=== PATIENT | female | born 1965 | race Caucasian/White ===

== ENCOUNTER 2018-10-21 06:38 | Day surgery (SDC) | payer BC, MEDICARE, SELFPAY ==
[2018-09-08 10:25] VITALS: BMI 27.4
--- NOTE | 2018-10-21 | PATH_ITS ---
[facility] Accession Number: [id number] . 01 Material submitted: . ENDOMETRIAL CURETTINGS . 02 Diagnosis: Endometrial Curettings: Very scant endometrial tissue present. Please see comment. MRV/10/22/2018 . 02 Comment: The specimen consists predominantly of blood with very scant strips of endometrial glandular epithelium and scant fragments of endometrial tissue. Due to the scant nature of this biopsy, it may not be entirely correspondence representative of this patient's endometrium. Additional sampling could be considered, if clinically appropriate. There is no evidence of cytologic atypia, glandular hyperplasia or malgnancy in these small tissue fragments. . 02 Electronically signed: . Krystyna Ayala MD, Pathologist NPI- [id number] . 01 Gross description: . Received one formalin-filled container labeled with the patient's name and labeled endometrial curettings. The specimen consists of a less than 0.25 cc aggregate of tissue, mucoid material and blood, which is wrapped and entirely submitted in one cassette. [place] [id number] /[facility] . 02 Pathologist provided ICD-10: N85.00 . 02 CPT . 275516 Performed at: 01 [facility] [address], [place], [place] [id number] MD Chris Neri MD Phone: [phone] Performed at: [address] [facility] [address] [place], [place] [id number] MD Snehal Tian MD Phone: [phone]
[2018-10-21 06:58] VITALS: BP 156/90; PULSE 65; RESP 16; TEMP 36.8; O2SAT 96; BMI 27.8
[2018-10-21] MEDS: LACTATED RINGERS 1,000 ML 100 ML IV (07:08)
[2018-10-21 07:12] VITALS: BMI 27.8
[2018-10-21] MEDS: SCOPOLAMINE 1 PATCH TOP (07:29)
--- NOTE | 2018-10-21 07:31 | PM.HP.1 ---
History of Present Illness Date Patient Seen: 10/21/18 Time Patient Seen: 07:31 Chief complaint: [id number] D&C HYSTEROSCOPY Narrative: Patient is a 53-year-old 3 para 2 with postmenopausal bleeding who presents for D&C hysteroscopy Patient History Medical History Fibromyalgia (Chronic ~1999) Headache (Chronic ~1987) Hypothyroidism (Chronic ~2009) Psoriasis (Chronic ~1999) TMJ (temporomandibular joint disorder) (Chronic ~1987) Tinnitus (Chronic ~1987) Chicken pox (Resolved) Measles (Resolved) Mumps (Resolved) Surgical History Anesthesia (Resolved) History of cholecystectomy (Resolved ~1985) History of mandibular surgery (Resolved ~1998) History of surgery (Resolved) History of tonsillectomy (Resolved ~1966) Family History Father No problems noted. Mother Hyperlipidemia Brother Hyperlipidemia Hypertension Grandfather Diabetes mellitus Stroke Grandmother Heart disease Grandfather No problems noted. Grandmother No problems noted. Social History household members: spouse Smoking Status: Never smoker Family & Social History Family History Father No problems noted. Mother Hyperlipidemia Brother Hyperlipidemia Hypertension Grandfather Diabetes mellitus Stroke Grandmother Heart disease Grandfather No problems noted. Grandmother No problems noted. Social History: household members spouse Tobacco & Substance use: Smoking Status Never smoker Meds Home Medications Medication Instructions Recorded Confirmed Type levothyroxine 100 mcg tablet 100 mcg PO DAILY 06/09/18 10/21/18 History liothyronine 5 mcg tablet 5 mcg PO .COMPLEX tab 06/09/18 10/21/18 History orphenadrine citrate ER 100 mg 100 mg PO BID 06/09/18 10/21/18 History tablet,extended release trazodone 50 mg tablet 50 mg PO BEDTIME tab 06/09/18 10/21/18 History Allergies Allergy/AdvReac Type Severity Reaction Status Date / Time No Known Drug Allergies Allergy Verified 10/21/18 06:55 Exam Vital Signs (past 8 hours): - 10/21/18 06:58 Temperature 98.2 F Pulse Rate 65 Respiratory Rate 16 Blood Pressure 156/90 H Pulse Oximetry 96 Oxygen Delivery Method Room Air Narrative Exam Narrative: HEENT: No thyromegaly, no anterior cervical or supraclavicular lymphadenopathy. Lungs:Clear to auscultation bilaterally, no wheezes. Cardiovascular: Regular rate and rhythm, no murmurs, rubs, or gallops the. Abdomen: No scars. No hepatosplenomegaly. No masses palpable. External genitalia: Normal Vagina: Normal Cervix: Parous Bimanual exam: 6 Week size uterus. Mobile. Rectal: No masses. Assessment & Plan (1) Postmenopausal postcoital bleeding: Current visit: Yes Status: Acute Assessment & Plan narrative: Assessment: A 53-year-old 3 para 2 with postmenopausal bleeding Plan: D&C hysteroscopy The risks, benefits, and alternatives were explained to the patient. The risks including bleeding, infection or uterine perforation. She understands these risks and agrees to proceed. A full PAR-Q was held and consent form was signed.
[2018-10-21] MEDS: APREPITANT 40 MG CAPSULE PO (07:32)
--- NOTE | 2018-10-21 07:41 | PM.PREOP ---
Pre-operative Note Interval Note History & Physical reviewed/Exam performed by Physician: Yes Changes to H&P: No
[2018-10-21 08:18] VITALS: BP 168/89; PULSE 80; RESP 20; TEMP 36.2; O2SAT 99
[2018-10-21 08:23] VITALS: BP 158/88; PULSE 72; RESP 12; O2SAT 99
--- NOTE | 2018-10-21 08:24 | P.OP_ITS ---
Operative Date/Time/Diagnoses Date of procedure: 10/21/18 Time of procedure: 08:17 Pre-op diagnosis: Postmenopausal bleeding Post-op diagnosis: same Procedure: Procedures Operation Date: 10/21/18 07:45 Actual Procedures Side Surgeon p Hysteroscopy D&C Dotty Lema MD Indications: Postmenopausal bleeding Surgeon: Dotty Lema Anesthesia Type: General (LMA) Operative Notes Findings: A 6 week size uterus Both fallopian tube ostia observed No polyps or fibroids Closure Type: not applicable Specimen(s): endometrial curettings Estimated blood loss (mL): 5 Blood products transfused: none Procedure in detail: After informed consent was obtained, the patient was taken to the operating room where she was placed in the dorsal supine position. After adequate LMA general anesthesia was achieved, she was placed in the dorsal lithotomy position, and prepped and draped in the usual sterile fashion. A bivalve speculum was placed into the vagina and the anterior lip of the cervix grasped with a single-tooth tenaculum. Cervical os was sequentially dilated to the # 8 Hegar dilator. The hysteroscope passed easily into the endometrial cavity. Initial inspection with the hysteroscope revealed both fallopian tube ostia. There were no polyps or fibroids. The hysteroscope was removed. Sharp curettage was performed yielding a small amount of endometrial curettings. The instruments were removed from the uterus. The single-tooth tenaculum was rem nick from the anterior lip of the cervix. The bivalve speculum was removed from the vagina. Complications: none Post-operative Condition: stable Disposition: PACU Plan for aftercare: Home after recovery
[2018-10-21 08:28] VITALS: BP 139/88; PULSE 72; RESP 14; O2SAT 99
[2018-10-21 08:33] VITALS: BP 141/82; PULSE 59; RESP 11; TEMP 36.1; O2SAT 100
[2018-10-21 08:41] VITALS: BP 162/88; PULSE 58; RESP 15; TEMP 36.3; O2SAT 100
== END 2018-10-21 08:56 | disposition home or self-care (01) ==
PROVIDERS: PCP Family Medicine; Visit Provider Obstetrics & Gynecology
PROC: 0UDB8ZZ Extraction of Endometrium, Via Natural or Artificial Opening Endoscopic (ICD-10-PCS; CPT 58558; principal; 2018-10-21 07:45)
DX: N85.00 Endometrial hyperplasia, unspecified (principal); M79.7 Fibromyalgia; E03.9 Hypothyroidism, unspecified
CPT/HCPCS: 58558; J1100; J2405; J2704; J3010; J8501

== ENCOUNTER → 2019-01-31 18:41 | Outpatient (CLI) | payer BC, MEDICARE, SELFPAY ==
--- NOTE | 2019-01-31 | DI.MRI.S_ITS ---
PROCEDURE: MR SHOULDER LT WO CON INDICATIONS: IMPINGEMENT SYNDROME OF LEFT SHOULDER TECHNIQUE: Noncontrast oblique coronal T2 fast spin echo with fat saturation, oblique sagittal T1 spin echo and T2 fast spin echo with fat saturation, axial T1 spin echo and T2 fast spin echo with fat saturation through the shoulder. COMPARISON: [facility], CR, XR SHOULDER 2+ VIEWS LEFT, 01/07/2019, 13:10. FINDINGS: Image quality: Excellent. Rotator cuff: There is full-thickness tear of the supraspinatus tendon. No tendon retraction. The infraspinatus and subscapularis tendons appear intact throughout. Sagittal images demonstrate no rotator cuff muscle atrophy. Bones and bursae: No bone marrow contusions or fractures. Mild to moderate acromioclavicular and glenohumeral joint degeneration. The acromion demonstrates conventional anatomy, without an os acromiale. No pathologic subacromial-subdeltoid or subcoracoid bursal fluid is present. Capsule and soft tissues: There is degenerative fraying of the superior and inferior labrum In the absence of intra-articular contrast, the labrum and glenohumeral ligaments appear intact. The long head of the biceps tendon demonstrates normal location and morphology. The rotator interval appears normal, without fibrosis. The coracohumeral ligament is normal in thickness. IMPRESSION: 1. Full-thickness tear of the supraspinatus tendon. No tendon retraction or supraspinatus muscle atrophy. 2. [id number] acromioclavicular and glenohumeral joint degeneration. 3. Degenerative fraying of the superior and inferior glenoid labrum. Dictated by: Martir Griffiths M.D. on 02/01/2019 at 10:55 Approved by: Martir Griffiths M.D. on 02/01/2019 at 17:59
== END ==
PROVIDERS: Visit Provider Orthopaedic Surgery
DX: M75.42 Impingement syndrome of left shoulder (principal); M75.122 Complete rotator cuff tear or rupture of left shoulder, not specified as traumatic; M19.012 Primary osteoarthritis, left shoulder
CPT/HCPCS: 73221

== ENCOUNTER → 2020-11-02 14:02 | Outpatient (CLI) | payer OTHER, MEDICARE, SELFPAY ==
--- NOTE | 2020-11-02 14:11 | DI.RAD.S_ITS ---
PROCEDURE: XR CERVICAL SPINE 4V OR 5V INDICATIONS: neck pain TECHNIQUE: 6 views of the cervical spine were acquired. COMPARISON: None. FINDINGS: Bones: No fractures or dislocations to the T1 level. No suspicious bony lesions. There is normal range of motion between flexion and extension, with preserved normal bony alignment. Degenerative changes are mild. No intervertebral disc space narrowing. No instability with flexion or extension. Soft tissues: Prevertebral soft tissues are normal in thickness. IMPRESSION: 1. No acute abnormality. 2. Mild degenerative changes. 3. No significant disc disease. Dictated by: Edvin Kay M.D. on 11/02/2020 at 14:57 Approved by: Edvin Kay M.D. on 11/02/2020 at 14:59
== END ==
PROVIDERS: Referring Provider Nurse Practitioner; Visit Provider Nurse Practitioner
DX: M54.2 Cervicalgia (principal); M47.812 Spondylosis without myelopathy or radiculopathy, cervical region
CPT/HCPCS: 72050

== ENCOUNTER → 2023-08-24 13:24 | Outpatient (CLI) | payer OTHER, MEDICARE, SELFPAY ==
--- NOTE | 2023-08-24 13:28 | DI.RAD.S_ITS ---
PROCEDURE: XR CERVICAL SPINE 4V OR 5V INDICATIONS: NECK PAIN TECHNIQUE: 5 views of the cervical spine acquired. COMPARISON: [facility], CR, XR CERVICAL SPINE 4V OR 5V, 11/02/2020, 14:14. FINDINGS: Bones: No fractures or dislocations to the T1 level. Trace anterolisthesis of C4 on C5. Mild degenerative disc disease throughout the cervical spine. Bilateral facet arthropathy, most pronounced at C3-C4, C4-C5, C5-C6 and C6-C7 on the left. Oblique images demonstrate moderate foraminal stenosis at C6-C7 on the left, and mild foraminal stenosis at C4-C5 on the left and C6-C7 on the right. Note is made of bilateral TMJ prostheses. Soft tissues: No prevertebral soft tissue swelling. IMPRESSION: 1. Mild degenerative disc disease and severe facet arthropathy in cervical spine. 2. Moderate foraminal stenosis at C5-C6 on the left, and mild foraminal stenoses at multiple other levels. 3. Bilateral TMJ arthroplasties and joint prosthesies. Dictated by: Martir Griffiths M.D. on 08/24/2023 at 14:24 Approved by: Martir Griffiths M.D. on 08/24/2023 at 14:29
== END ==
PROVIDERS: PCP Physician Assistant; Referring Provider Physical Medicine & Rehabilitation; Visit Provider Physical Medicine & Rehabilitation
DX: M47.22 Other spondylosis with radiculopathy, cervical region (principal); M50.10 Cervical disc disorder with radiculopathy, unspecified cervical region; M48.02 Spinal stenosis, cervical region; M54.81 Occipital neuralgia; M26.609 Unspecified temporomandibular joint disorder, unspecified side
CPT/HCPCS: 64405; 64450; 72050; 99215; J1100

== ENCOUNTER → 2023-09-05 13:10 | Outpatient (CLI) | payer OTHER, MEDICARE, SELFPAY ==
--- NOTE | 2023-09-05 13:12 | DI.MRI.S_ITS ---
PROCEDURE: MR CERVICAL SPINE WO CON INDICATIONS: Cervical radiculopathy TECHNIQUE: Noncontrast sagittal T1 spin echo and T2 fast spin echo, sagittal STIR, foraminal oblique sagittal T2 fast spin echo, and axial gradient echo or T2 fast spin echo through the cervical spine. COMPARISON: [facility], CR, XR CERVICAL SPINE 4V OR 5V, 08/24/2023, 13:32. FINDINGS: Image quality: Excellent. Alignment and Curvature: There is normal bony alignment. Bone Marrow: Marrow demonstrates normal overall signal. Spinal Cord: Visualized spinal cord has normal size and signal. No cerebellar tonsillar herniation. Paraspinous Soft Tissues: No paravertebral masses. Prevertebral soft tissues are normal in thickness. C2-C3: Prominent left facet hypertrophy. No canal stenosis or foraminal stenosis. C3-C4: Disc bulge. Left facet hypertrophy. No canal stenosis or right foraminal stenosis. Qenb-sd-vrqofbrr left foraminal stenosis. C4-C5: Mild disc bulge. No canal stenosis. Mild right facet hypertrophy. No significant right foraminal narrowing. Prominent left facet hypertrophy. Moderate to severe left foraminal narrowing with a degree of left foraminal C5 nerve root impingement. C5-C6: Disc bulge. No canal stenosis. Mild right facet hypertrophy. No significant right foraminal narrowing. Prominent left facet hypertrophy. Moderate left foraminal narrowing with mild flattening deformity on the exiting left C6 nerve root. C6-C7: No canal stenosis. No significant right foraminal narrowing. Prominent left facet hypertrophy. Moderate to severe left foraminal narrowing with a mild degree of left foraminal C7 nerve root impingement. C7-T1: No canal stenosis or foraminal stenosis. IMPRESSION: 1. There is no central canal stenosis or significant right foraminal stenosis. 2. There is multilevel left facet hypertrophy, prominent on multiple levels. Findings include moderate to severe left foraminal narrowing at C4-C5, moderate left foraminal narrowing at C5-C6, and moderate to severe left foraminal narrowing at C6-C7. Dictated by: Tolu Broderick M.D. on 09/07/2023 at 14:35 Approved by: Tolu Broderick M.D. on 09/07/2023 at 15:05
== END ==
PROVIDERS: PCP Physician Assistant; Referring Provider Physical Medicine & Rehabilitation; Visit Provider Physical Medicine & Rehabilitation
DX: M47.22 Other spondylosis with radiculopathy, cervical region; M48.02 Spinal stenosis, cervical region
CPT/HCPCS: 72141

== ENCOUNTER → 2023-09-24 11:12 | Outpatient (CLI) | payer OTHER, MEDICARE, SELFPAY | PROVIDERS: Family Provider Physician Assistant; PCP Physician Assistant; Referring Provider Physical Medicine & Rehabilitation; Visit Provider Physical Medicine & Rehabilitation | DX: M54.12 Radiculopathy, cervical region (principal); M47.812 Spondylosis without myelopathy or radiculopathy, cervical region | CPT/HCPCS: 95886; 95912 ==

== ENCOUNTER 2023-10-20 09:15 | Outpatient (CLI) | payer OTHER, MEDICARE, SELFPAY ==
[2023-10-20] VITALS (9 sets, daily range): BP systolic 139–184; BP diastolic 68–81; PULSE 57–74; RESP 12–20; TEMP 36.3; O2SAT 96–100
--- NOTE | 2023-10-20 09:45 | DI.RAD.S_ITS ---
PROCEDURE: PAIN C/T INTERLAMINAR INJECT INDICATIONS: RADICULOPATHY COMPARISON: None. FINDINGS: Fluoroscopic spot filming was performed to verify placement of spinal needles at the C6-C7 level(s), as labeled on the films. Appropriate location(s) of the needle tip(s) was confirmed by injection of iodinated contrast. IMPRESSION: Intra procedural examination demonstrating appropriate positions of the needles. Dictated by: Micah Padilla M.D. on 10/20/2023 at 12:11 Approved by: Micah Padilla M.D. on 10/20/2023 at 12:12
[2023-10-20] MEDS: MIDAZOLAM 2 MG/2 ML VIAL IV (10:11)
[2023-10-20] MEDS: DEXAMETHASONE 10 MG/ML VIAL 20 MG INJ (10:17)
[2023-10-20] MEDS: iopamidoL 15 ML VIAL 3 ML INJ (10:17)
[2023-10-20] MEDS: BUPIVACAINE 0.25% (PF) VIAL 2 ML INJ (10:17)
--- NOTE | 2023-10-20 10:29 | P.PCN_ITS ---
Date/Time/Diagnoses Date of procedure: 10/20/23 Time of procedure: 10:29 Pre-procedure diagnosis: 1. CERVICAL STENOSIS, 2. CERVICAL HNP WITH UPPER EXTREMITY RADICULAR FEATURES Post-procedure diagnosis: same Procedure Notes Procedure: 1. FLUORSCOPICALLY GUIDED CONTRAST CONTROLLED INTERLAMINAR EPIDURAL STEROID INJECTION - C6/7 TL VINEET Indications: Alanna is referred by ESTRELLA Garcia for treatment of Cervical HNP with Upper Extremity Paresthesias. Physician: Vasile Irizarry Total Fluoroscopy time (seconds): 23 Total sedation minutes: 14 Complications: none Procedure in detail & Post-procedure care: FINDINGS Cervical Stenosis due to disc deterioration and nerve root irritation and nerve root irritation DESCRIPTION OF PROCEDURE Fluoroscopically guided, contrast-controlled C6/7 translaminar epidural steroid injection with conscious sedation. Following review of allergy and review of potential side effects and complications, including, but not necessarily limited to, infection, allergic reaction, local tissue breakdown, temporary as well as permanent nerve injury, stroke, paralysis, and possible , the patient indicated that patient understood and agreed to proceed. An informed consent document was signed by the patient, witnessed by a nurse, and placed in the patient's chart. Additionally, other treatment options including modalities, medications, and physical therapy were reviewed with the patient. After review of previous anaesthesic history and IV conscious sedation the patient was deemed safe to proceed with today?s procedure with IV conscious sedation as ASA class II designation. Safety time-out was performed to confirm patient ID, procedure to be performed and site of procedure. IV sedation was accomplished with a combination of 2mg of Versed administered by the RN after DO order, titrated to patient comfort during the course of the procedure while the patient remained responsive to all verbal commands. In the prone position, following sterile prep and drape of the cervical region, the C6/7 translaminar space was identified fluoroscopically. The skin was anesthetized via a 25-gauge 1.5-inch needle with 1% lidocaine solution. At this point, a 25-gauge, 2.5-inch short bevel spinal needle was atraumatically introduced and advanced under fluoroscopic guidance into epidural space at the C6/7 translaminar space. Depth was confirmed on lateral view. Radiological data, including multiple fluoroscopic views of the cervical spine, reveal a spinal needle at the C6/7 translaminar space. Lateral views then show placement of the needle in the epidural space. Subsequent views show contrast material flowing superiorly and inferiorly in the epidural space. DSA fluoroscopy with live contrast injection, once again, confirmed no vascular or intrathecal uptake. At this point, using loss of resistance technique with saline and air, the epidural space was entered. Following negative aspiration, injection of approximately 1.5 cc of Isovue-200 with live fluoroscopy in the AP view confirmed epidural flow in the epidural space without vascular or intrathecal uptake observed. Subsequently, a test dose of 1 cc of 1% lidocaine solution was injected and patient was observed for two minutes without signs or symptoms of complications, including abdominal pain, shortness of breath, bilateral upper or lower extremity weakness, nausea and vomiting, prior to steroid injection. At this point, 2cc or 20mg of dexamethasone was then injected without incident. The patient tolerated the procedure well without signs or symptoms of comp lications prior to being transferred to the recovery area for further monitoring, The patient was then transferred to the recovery area where they were observed for an appropriate period of time after the injection. The patient reported a VAS score of 6 prior to the procedure and a post-procedure VAS of 0. POST OP INSTRUCTIONS The patient was provided a Pain Log to continue to record their response to the target-specific procedure prior to follow-up visit with the referring provider. Additionally, specific post-injection care instructions and a contact number to our office were provided if concerns arise regarding possible complications associated with the procedure are suspected.
== END 2023-10-20 10:45 | disposition home or self-care (01) ==
LOC: RAD 09:17
PROVIDERS: Family Provider Physician Assistant; PCP Physician Assistant; Referring Provider Physical Medicine & Rehabilitation; Visit Provider Physical Medicine & Rehabilitation
DX: M48.02 Spinal stenosis, cervical region (principal); M50.123 Cervical disc disorder at C6-C7 level with radiculopathy
CPT/HCPCS: 62321; 99152; J1100; J2250; J3490

== ENCOUNTER → 2024-02-23 13:16 | Outpatient (CLI) | payer OTHER, MEDICARE, SELFPAY ==
--- NOTE | 2024-02-23 14:00 | DI.CT.S_ITS ---
PROCEDURE: CT CERVICAL SPINE WO CON INDICATIONS: SPONDYLOSIS W RADICULOPATHY TECHNIQUE: Noncontrast 3 mm thick sections acquired from the skull base to the T4 level. Sagittal and coronal reformats were then constructed. For radiation dose reduction, the following was used: automated exposure control, adjustment of mA and/or kV according to patient size. COMPARISON: [facility], MR, MR CERVICAL SPINE WO CON, 09/05/2023, 13:44. [facility], CR, XR CERVICAL SPINE 4V OR 5V, 08/24/2023, 13:32. FINDINGS: Image quality: There is artifact associated with the metallic hardware. This examination is somewhat limited by quantum mottle artifact. Bones: No fractures or dislocations. Visualized superior ribs are intact. Partial visualization of bilateral mandible hardware, with associated streak artifact. Prominent facet arthropathy can be seen throughout the cervical spine on the left side, with milder facet arthropathy seen on the right. The disc heights are relatively well preserved. Focal degenerative change is seen involving the C1-C2 interface anteriorly. Soft tissues: Prevertebral soft tissues are normal in thickness. No paravertebral hematomas. No apical pneumothoraces. IMPRESSION: Relatively prominent left-sided facet arthropathy. Additional findings: Bilateral mandible postoperative change Dictated by: Volodymyr Coats M.D. on 02/23/2024 at 14:07 Approved by: Volodymyr Coats M.D. on 02/23/2024 at 14:11
== END ==
PROVIDERS: Family Provider Physician Assistant; PCP Physician Assistant; Referring Provider Neurological Surgery; Visit Provider Neurological Surgery
DX: M47.22 Other spondylosis with radiculopathy, cervical region (principal); Z98.890 Other specified postprocedural states
CPT/HCPCS: 72125

== ENCOUNTER → 2025-07-13 15:10 | Outpatient (CLI) | payer MEDICARE, SELFPAY ==
--- NOTE | 2025-07-13 15:11 | DI.US.S_ITS ---
PROCEDURE: US PELVIC COMPLETE INDICATIONS: PMB TECHNIQUE: Real-time scanning was performed of the pelvic organs, with image documentation. Additional endovaginal scanning was necessary due to incomplete visualization of the adnexal and endometrial structures by transabdominal scanning. COMPARISON: [facility], US, US PELVIC COMPLETE, 03/27/2020, 10:21. FINDINGS: Uterus: Uterus is anteverted and normal in size at 6.1 x 2.8 x 3.4 cm. The myometrium is homogeneous. The endometrium measures 3.3 mm combined thickness. Prominent uterine vessels are noted, nonspecific. Ovaries: The ovaries are not seen. Other: No pathologic free abdominal or pelvic fluid. IMPRESSION: Endometrium is normal in thickness. The ovaries are not seen. Prominent uterine vessels are noted of uncertain significance. We strive to produce accurate, complete, and clear reports of imaging services. To assist us in improving patient care, this report was composed using standard report templates and voice recognition software. Therefore, it may contain abnormal punctuation, insertions and/or omissions. Occasional wrong-word or sound-alike substitutions may occur. Though we review the report and make efforts to correct it, we do recommend that the report be read carefully in proper context to recognize any text inaccuracies. Dictated by: Micah Padilla M.D. on 07/13/2025 at 16:43 Approved by: Micah Padilla M.D. on 07/13/2025 at 16:46
== END ==
LOC: US 15:10
PROVIDERS: Family Provider Physician Assistant; PCP Physician Assistant; Referring Provider Physician Assistant; Visit Provider Obstetrics & Gynecology
DX: N95.0 Postmenopausal bleeding (principal)
CPT/HCPCS: 76830; 76856